=== PATIENT | male | born 1985 | race Two or more races ===

== ENCOUNTER 2020-08-05 11:49 | Emergency (ER) | payer OTHER ==
[~2020-08-05] VITALS: Ht 198.1 cm; Wt 81.2 kg
[2020-08-05] MEDS ORDERED: ACETAMINOPHEN 325 MG TAB PO ONE (12:00)
[2020-08-05 13:31] LABS: Basophils # (auto) 0.1 10 ^3/uL (0-0.2); Basophils % (auto) 0.7 % (0.0-2.0); Eosinophils # (auto) 0 10 ^3/uL (0-0.8); Eosinophils % (auto) 0.2 % (0.0-7.0); Hematocrit 42.1 % (41.0-53.0); Hemoglobin 14.9 g/dL (13.5-17.5); Lymphocytes # (auto) 1.6 10 ^3/uL (0.4-5.4); Lymphocytes % (auto) 18.7 % (10.0-50.0); Mean Corpuscular Hemoglobin 30.4 pg (28.0-32.0); Mean Corpuscular Hgb Conc. 35.4 g/dL (32.0-36.0); Mean Corpuscular Volume 85.7 fL (80.0-100.0); Monocytes # (auto) 0.7 10 ^3/uL (0-1.3); Monocytes % (auto) 8.3 % (0.0-12.0); Neutrophils % (auto) 72.1 % (37.0-80.0); Red Blood Cells 4.91 10^6/uL (4.5-5.90); Red Cell Distribution Width 14.1 % (11.8-14.3); White Blood Cell 8.3 10^3/uL (4.4-10.8)
[2020-08-05 13:57] LABS: Potassium 3.6 mmol/L (3.5-5.1)
[2020-08-05 14:04] LABS: BUN/Creatinine Ratio 9.8; Bilirubin, Total 0.7 mg/dL (0.2-1.0); Calcium 8.3 mg/dL (8.5-10.1); Total Protein 7.8 g/dL (6.4-8.2)
[2020-08-05 14:25] LABS: Urine Bacteria NONE SEEN /hpf (None Seen); Urine Blood Negative /uL (Negative); Urine Mucus FEW (None Seen); Urine Specific Gravity 1.031 (1.001-1.035); Urine WBC 1 /hpf (0 - 3)
[2020-08-05] MEDS ORDERED: IBUPROFEN 600 MG TAB PO ONE (14:45)
[2020-08-05 16:01] VITALS: BP 101/69
== END 2020-08-05 16:00 | disposition home or self-care (01) ==
LOC: ER 11:49
DX: J02.9 Acute pharyngitis, unspecified (principal); R07.89 Other chest pain; Z20.822 Contact with and (suspected) exposure to COVID-19
CPT/HCPCS: 36415; 71046; 80053; 81001; 85025; 85049; 87426; 99284; J7030

== ENCOUNTER 2020-08-07 11:43 | Emergency (ER) | payer SELFPAY ==
[~2020-08-07] VITALS: Ht 182.9 cm; Wt 81.6 kg
[2020-08-07 11:55] VITALS: BP 111/69
[2020-08-07] MEDS ORDERED: cefTRIAXone SOD 1,000 MG VL IM ONE (12:30)
[2020-08-07] MEDS ORDERED: methylPREDNISolone SOD SUCC 125 MG/2 ML VL IM ONE (12:30)
[2020-08-07] MEDS ORDERED: ACETAMINOPHEN 500 MG TAB PO ONE (12:30)
[2020-08-07] MEDS ORDERED: IBUPROFEN 800 MG TAB PO ONE (13:45)
== END 2020-08-07 14:00 | disposition home or self-care (01) ==
LOC: ER 11:43
DX: J03.90 Acute tonsillitis, unspecified (principal); R07.89 Other chest pain
CPT/HCPCS: 71046; 93005; 96372; 99284; J0696; J2930